=== PATIENT | female | born 1975 | race Caucasian/White ===

== ENCOUNTER → 2022-12-24 13:46 | Outpatient (CLI) | payer BC, SELFPAY ==
--- NOTE | 2022-12-24 13:50 | XR_ITS ---
FINAL REPORT CLINICAL HISTORY: work physical, TB screening. o chest complaints, nonsmoker. 0 ca hx. COMPARISON: None FINDINGS: Two views of the chest were obtained. The heart size and pulmonary vascularity are within normal limits. The mediastinum is normal. No acute pulmonary abnormality is identified. There is no pneumothorax. The bony thorax is intact. There are multiple scattered calcified granulomas identified as well as calcified hilar nodes bilaterally. No evidence of acute fungal or mycobacterial disease is identified. IMPRESSION: No active cardiopulmonary disease. Reviewed, Interpreted and Dictated by Solo Milian III, MD Transcribed by Liane Mann Authenticated and [facility]
== END ==
PROVIDERS: PCP Family Medicine; Visit Provider Student in an Organized Health Care Education/Training Program
DX: Z02.1 Encounter for pre-employment examination (principal)
CPT/HCPCS: 71046

== ENCOUNTER → 2023-02-25 12:00 | Outpatient (CLI) | payer BC, SELFPAY | PROVIDERS: PCP Student in an Organized Health Care Education/Training Program; Visit Provider Student in an Organized Health Care Education/Training Program | DX: R50.9 Fever, unspecified (principal) | CPT/HCPCS: 87635 ==

== ENCOUNTER 2024-08-02 16:00 | Outpatient (CLI) | payer BC, SELFPAY ==
[2024-08-02 20:40] LABS: Coronavirus 19, PCR Not Detected (NotDetected); Human Rhinovirus Not Detected (NotDetected); Influenza A, PCR Not Detected (NotDetected); Influenza B, PCR Not Detected (NotDetected); Respiratory Syncytial Virus Not Detected (NotDetected)
== END 2024-08-02 23:59 | disposition home or self-care (01) ==
LOC: LAB.DROPOF 08-03 11:51
PROVIDERS: PCP Student in an Organized Health Care Education/Training Program; Visit Provider Student in an Organized Health Care Education/Training Program
DX: R30.0 Dysuria (principal); R09.89 Other specified symptoms and signs involving the circulatory and respiratory systems; R09.82 Postnasal drip; R52 Pain, unspecified
CPT/HCPCS: 87086; 87631